=== PATIENT | female | born 1980 | race Caucasian/White ===

== ENCOUNTER 2024-02-08 14:15 | Emergency (ER) | payer MEDICAID, OTHER, SELFPAY ==
[2024-02-08] VITALS (7 sets, daily range): BP systolic 97–120; BP diastolic 66–75; PULSE 62–90; RESP 16–20; TEMP 36.5–36.6; O2SAT 97–100; BMI 26.9
--- NOTE | ~2024-02-08 | US_ITS ---
EXAMINATION: US VENOUS ULTRASOUND WITH DOPPLER LOWER EXTREMITY, BILATERAL CLINICAL INFORMATION: Calf pain COMPARISON: None available. TECHNIQUE: Ultrasound of the deep veins is performed from the hip to the calf with compression sonography and color and pulse Doppler assessment. Spectral analysis with color-flow imaging is performed. FINDINGS: RIGHT: There is normal venous compression and respiratory variation and augmented flow. The visualized common femoral vein, superficial femoral vein, profunda femoral vein, popliteal vein, and the trifurcation region shows no evidence of deep venous thrombosis. There is no significant popliteal fossa cyst. LEFT: There is normal venous compression and respiratory variation and augmented flow. The visualized common femoral vein, superficial femoral vein, profunda femoral vein, popliteal vein, and the trifurcation region shows no evidence of deep venous thrombosis. There is no significant popliteal fossa cyst. If the patient's symptoms persist, followup ultrasound in 5 days 7 days might be of value to exclude proximal propagation from a non-visualized calf vein. US/US venous duplex LE BI IMPRESSION: No DVT demonstrated in the bilateral lower extremity.
--- NOTE | 2024-02-08 14:19 | ED.GENADULT ---
HPI - General Adult General Chief complaint: General Medical Stated complaint: tired and diff walking Time Seen by Provider: 02/08/24 16:57 Source: patient and RN notes reviewed Mode of arrival: ambulatory Limitations: no limitations History of Present Illness ED Provider: Hali Prajapati PA-C HPI narrative: This is a 43-year-old female, with no known medical problems, who presents emergency department with complaints of fatigue, body aches, chills, for the last 2 weeks. Patient reports that over the last 2 weeks she has felt very tired and worn down. She denies any fevers, chills, congestion, sore throat, ear pain. She does endorse that she has had intermittent palpitations and chest pain, which occur at random. She states last episode of chest pain was 3 days ago. She states that she had palpitations yesterday. She denies history of similar symptoms in the past. She does not have a primary care physician at this time. She denies any recent travel, surgery, hospitalizations or surgeries MD complaint: Fatigue Onset (ago): week(s) Radiation: non-radiation Quality: aching Pain Consistency: constant Relieving factors: none Exacerbating factors: none Associated symptoms: denies other symptoms Treatments prior to arrival: none Related Data Allergies Allergy/AdvReac Type Severity Reaction Status Date / Time No Known Allergies Allergy Verified 02/08/24 14:22 Review of Systems Review of Systems: Yes all other systems are reviewed and are negative Constitutional: Constitutional: Reports as per [facility] Past Medical History Attestation statement: The following information was validated with the patient. Social History Social History Advance Directives: No Advance Directives Information Provided: No Physical Exam ED Vital Signs: Vital Signs - 24 hr 02/08/24 14:19 02/08/24 18:01 02/08/24 19:12 Temperature 97.8 F 97.7 F Pulse Rate 90 70 62 Respiratory Rate 16 20 Blood Pressure 97/66 115/73 108/67 Pulse Oximetry 97 100 Oxygen Delivery Method Room Air Room Air 02/08/24 19:14 02/08/24 19:16 02/08/24 22:15 Temperature 97.7 F Pulse Rate 65 70 72 Respiratory Rate 16 Blood Pressure 115/72 120/75 108/71 Pulse Oximetry 100 Oxygen Delivery Method Room Air 02/08/24 22:27 Temperature 97.7 F Pulse Rate 72 Respiratory Rate 16 Blood Pressure 108/71 Pulse Oximetry 100 Oxygen Delivery Method Room Air BMI result Body Mass Index 26.9 Const General: cooperative, comfortable and no acute distress Orientation/consciousness: patient oriented x3 Limitations: no limitations HENNY Head: Yes normal to inspection, Yes normocephalic and Yes atraumatic Ears: hearing grossly normal bilaterally General nose exam: Normal external nose present Face and sinus: Yes normal facial exam Mouth: Normal oral and palatal mucosa present, oropharynx normal and moist mucous membranes Throat: Yes posterior oropharynx normal Eyes General: appearance normal, both eyes and all related structures Eyelids: Yes eyelids normal Conjunctivae: conjunctivae normal Sclerae: sclerae normal Pupils: Equal, round and reactive pupils present EOM: EOMs intact bilaterally Neck Neck: Yes normal visual inspection, Yes full ROM and Yes no lymphadenopathy Lymphatic: no lymphadenopathy noted Chest Chest palpation & inspection: normal inspection of the chest Resp Effort & Inspection: normal respiratory effort and able to speak in complete sentences Auscultation: clear to auscultation bilaterally, no crackles, no rales, no rhonchi and no wheezes Cardio Rate: regular rate Rhythm: regular rhythm Heart sounds: S1 normal heart sound present and S2 normal heart sound present GI Inspection: Yes normal to inspection Skin General skin exam: no rashes or lesions noted Trauma: no lacerations or abrasions Wounds: no wounds Neuro General: patient oriented x3 and moves all extremities Cranial nerves: Yes Equal, round and reactive pupils present Extrem Other: Bilateral lower extremities with tenderness palpation along the calves, strong DP pulse, no obvious swelling General: Yes normal to inspection Right upper extremity: normal to inspection Left upper extremity: normal to inspection Right lower extremity: normal to inspection Left lower extremity: normal to inspection Course Course Course Narrative: This is an RME performed by Jame Chi CNP: Additional HPI, ROS, PE not included below will be deferred to primary provider. Patient is a 43-year-old female reporting fatigue, posterior headache, chills, myalgias, due to pain feels as though she is unable to walk up the stairs. Denies respiratory symptoms. Symptom onset was 2 weeks ago, progressively worsening Plan: Labs, Viral panel Reevaluation(s) Reevaluation #1: Patient's orthostatics are negative, workup today reassuring. I discussed with patient that no acute findings on her exam, however advised follow-up with the [facility]. She understands and agrees with plan. Given strict return precautions. Patient stable for discharge. Time: 19:28 Medications Administered Discontinued Medications Generic Name Dose Route Start Last Admin Trade Name Sapna PRN Reason Stop Dose Admin Acetaminophen 975 mg 02/08/24 18:34 02/08/24 18:48 Acetaminophen 325 Mg Tablet PO 02/08/24 18:35 975 mg ONCE ONE Administration Medical Decision Making Medical Decision Making [facility] Narrative: This is a 43-year-old female, with no known medical problems, who presents emergency department with complaints of fatigue, body aches for the last 2 weeks. On arrival, vital signs within normal limits. She is alert and oriented times 4. She states that her symptoms have been constant. She sleeps well at night, no history of similar symptoms in the past. She thought that this was a virus who states that her symptoms have not improved. She denies any fevers, chills, severe chest pain, shortness breath, abdominal pain, nausea, vomiting or diarrhea. She states no changes in her bowels. No recent weight loss, or profound fatigue. Differential diagnoses include anemia, viral syndrome, URI, hypothyroidism, tick-borne illness. She denies seeing any tics on her body or any recent rashes, she does not spend a significant amount of time outdoors. Plan, EKG, ultrasound bilateral lower extremities, labs Differential Diagnosis Differential Diagnoses: The differential diagnosis associated with the presentation includes See above Admission/Observation Consideration of admission/observation: Escalation of care including admission/observation considered Lab Data [facility] Lab Attestation statement: I reviewed the patient's lab results. No leukocytosis, H&H revealing a normocytic anemia 11.5/35.2, chemistry within normal limits. TSH 1.33, urine does not appear to be infected, negative mono, influenza, RSV, COVID 02/08/24 14:34 02/08/24 14:34 Labs: Lab Results 02/08/24 02/08/24 Range/Units 14:34 17:44 WBC 7.1 (4.8-10.8) X10*3/uL RBC 3.62 L (4.20-5.50) X10*6/uL Hgb 11.4 L (12.0-16.0) g/dl Hct 35.2 L (37.0-47.0) % MCV 97.2 (80.0-98.0) fL MCH 31.5 (27.0-33.0) pg MCHC 32.4 (31.0-35.0) g/dl RDW 12.4 (11.0-16.0) % Plt Count 235 (160-400) X10*3/uL MPV 10.8 (9.4-12.3) fL Immature Gran % (Auto) 0.1 (0.0-0.4) % Neut % (Auto) 63.7 (45-73) % Lymph % (Auto) 26.0 (20-40) % [place] % (Auto) 7.8 (2-11) % Eos % (Auto) 2.0 (0-4) % Baso % (Auto) 0.4 (0-2) % Lymph # (Auto) 1.8 (1.2-4.9) X10*3/uL [place] # (Auto) 0.6 (0.1-1.2) X10*3/uL Eos # (Auto) 0.1 (0.0-0.4) X10*3/uL Baso # (Auto) 0.0 (0.0-0.2) X10*3/uL Abs Immat Gran (auto) 0.01 (0.00-0.03) X10*3/uL Absolute Neuts (auto) 4.5 (2.0-8.3) x10*3/uL Absolute Nucleated RBC 0.000 (0.0-0.012) X10*3/uL Nucleated RBC % (auto) 0.0 (0.0-0.2) /100WBC Sodium 140 (135-145) mmol/L Potassium 4.6 (3.3-5.1) mmol/L Chloride 108 (96-108) mmol/L Carbon Dioxide 26 (22-29) mmol/L Anion Gap 11 L (12-20) BUN 18 H (9-16) mg/dL Creatinine 0.73 (0.5-1.4) mg/dL Estim Creat Clear Calc 90.6 Estimated GFR > 60 Random Glucose 97 (60-115) mg/dL Calcium 9.2 (8.4-10.2) mg/dL Total Bilirubin 0.7 (0.0-1.0) mg/dL AST 15 (5-31) U/L ALT 14 (0-31) U/L Alkaline Phosphatase 42 (39-117) U/L Total Protein 6.7 (6.5-8.0) g/dL Albumin 3.8 (3.5-5.0) g/dL TSH 1.33 (0.32-4.0) uIU/mL Urine Color Yellow Urine Appearance Clear Urine pH 7.0 (5.0-9.0) Ur Specific [place] 1.015 (1.005-1.025) Urine Protein Negative (Neg-Trace) mg/dL Urine Glucose (UA) Negative (Negative) mg/dL Urine Ketones Negative (Negative) mg/dL Urine Blood Negative (Negative) Urine Nitrite Negative (Negative) Ur Leukocyte Esterase Negative (Negative) Urine Test NEGATIVE (NEGATIVE) Monoscreen Negative (Negative) Influenza Type A (PCR) NEGATIVE (Negative) Influenza Type B (PCR) NEGATIVE (Negative) RSV RNA Qual (PCR) NEGATIVE (Negative) SARS-CoV-2 RNA (RT-PCR) NEGATIVE (Negative) Independent Interpretation I performed an independent interpretation of an: EKG Interpretation: EKG normal sinus rhythm at a ventricular rate of 61 beats per minute, FL interval 166, QT QTC 412/414. No ST elevation or depression Radiology Impression Discussion of test interpretation with radiology: I have reviewed the radiologist's reading. Radiologist Impression: US/US venous duplex LE BI IMPRESSION: No DVT demonstrated in the bilateral lower extremity. Dictated By: Seng Kumar MD Signed By: <Electronically signed by Seng Kumar MD in OV> Discharge Plan Discharge Clinical Impression: Fatigue Patient Disposition: Home, Self-Care Instructions: Fatigue (ED) Additional Instructions: You were seen in the emergency department after feeling fatigued. Your workup today was reassuring. Please rest, and drink plenty of fluids. Follow-up with the [facility], call on Sunday to make an appointment. We also tested you for tick-borne illnesses, we will call you if any of these are positive. If any new or worsening symptoms occur including but not limited to severe headache, dizziness, chest pain, shortness of breath, please return for re-evaluation. Referrals: [place],[facility] [Physician] - Interventions: ED Discharge Assessment Last Done: 02/08/24 22:27 Discharge Date/Time: 02/08/24 22:27 Print Language: Georgian
[2024-02-08 14:42] LABS: MANUAL DIFF FLAG NO
[2024-02-08 14:43] LABS: Basophils Percent Auto 0.4 % (0-2); Eosinophils Absolute Auto 0.1 X10*3/uL (0.0-0.4); Hematocrit 35.2 % (37.0-47.0); Hemoglobin 11.4 g/dl (12.0-16.0); Imm Gran Abs Auto 0.01 X10*3/uL (0.00-0.03); Imm Gran Pct Auto 0.1 % (0.0-0.4); Lymphocytes Absolute Auto 1.8 X10*3/uL (1.2-4.9); Mean Corpuscular HGB Conc 32.4 g/dl (31.0-35.0); Mean Corpuscular Hemoglobin 31.5 pg (27.0-33.0); Mean Corpuscular Volume 97.2 fL (80.0-98.0); Mean Platelet Volume 10.8 fL (9.4-12.3); Monocytes Absolute Auto 0.6 X10*3/uL (0.1-1.2); Monocytes Percent Auto 7.8 % (2-11); Neutrophils Absolute Auto 4.5 x10*3/uL (2.0-8.3); Neutrophils Percent Auto 63.7 % (45-73); Platelet Count 235 X10*3/uL (160-400); Red Blood Count 3.62 X10*6/uL (4.20-5.50); Red Cell Distribution Width 12.4 % (11.0-16.0); White Blood Count 7.1 X10*3/uL (4.8-10.8)
[2024-02-08 14:56] LABS: Alanine Aminotransferase 14 U/L (0-31); Albumin Level 3.8 g/dL (3.5-5.0); Alkaline Phosphatase 42 U/L (39-117); Anion Gap 11 (12-20); Aspartate Amino Transferase 15 U/L (5-31); Bilirubin Total 0.7 mg/dL (0.0-1.0); Blood Urea Nitrogen 18 mg/dL (9-16); Calcium 9.2 mg/dL (8.4-10.2); Carbon Dioxide 26 mmol/L (22-29); Chloride 108 mmol/L (96-108); Creatinine Clr Calc Pharmacy 90.6; Estimated Glomerular Filt Rate > 60; Glucose Random 97 mg/dL (60-115); Potassium 4.6 mmol/L (3.3-5.1); Sodium 140 mmol/L (135-145); Total Protein 6.7 g/dL (6.5-8.0)
[2024-02-08 15:20] LABS: Influenza A PCR NEGATIVE (Negative); Influenza B PCR NEGATIVE (Negative); Resp Syncy Virus RNA Qual PCR NEGATIVE (Negative); SARS COV2 PCR INHOUSE NEGATIVE (Negative)
[2024-02-08 17:54] LABS: Appearance Urine Clear; Color Urine Yellow; Glucose Urine UA Negative (Negative); Leukocyte Esterase Urine Negative (Negative); Nitrite Urine Negative (Negative); Specific Gravity - Urine 1.015 (1.005-1.025); Urine Blood Negative (Negative); Urine Ketones Negative (Negative); Urine Protein Negative (Neg-Trace)
[2024-02-08 17:57] LABS: UPreg QC Valid YES; Urine Pregnancy NEGATIVE (NEGATIVE)
[2024-02-08 18:03] LABS: Monotest Negative (Negative)
[2024-02-08] MEDS: Acetaminophen 325 MG TABLET 975 MG PO (18:48)
--- NOTE | 2024-02-08 19:29 | ECG_ITS ---
Test Reason : WEAKNESS Blood Pressure : / mmHG Vent. Rate : 061 BPM Atrial Rate : 061 BPM P-R Int : 166 ms QRS Dur : 086 ms QT Int : 412 ms P-R-T Axes : 038 020 024 degrees QTc Int : 414 ms Normal sinus rhythm Normal ECG No previous ECGs available Referred By: Hali Prajapati Electronically Signed By:Jamal Shaw
[2024-02-08 21:29] LABS: Thyroid Stimulating Hormone 1.33 uIU/mL (0.32-4.0)
[2024-02-11 15:07] LABS: A. Phagocytphilium DNA,RT-PCR NOT DETECTED (NOT DETECTED); Babesia Microti DNA, RT-PCR NOT DETECTED (NOT DETECTED); Borrelia Miyamotoi,DNA RT-PCR NOT DETECTED (NOT DETECTED); E.Chaffeensis DNA RT-PCR NOT DETECTED (NOT DETECTED); Lyme(Borrelia ssp)DNA RT-PCR NOT DETECTED (NOT DETECTED)
[2024-02-11 22:48] LABS: Lyme Abs Screen <0.90 index
== END 2024-02-08 22:27 | disposition home or self-care (01) ==
PROVIDERS: Nurse Practitioner Family; Physician Assistant Medical; Emergency Provider Emergency Medicine
DX: R53.83 Other fatigue (principal); M79.662 Pain in left lower leg; M79.661 Pain in right lower leg; R53.1 Weakness; Z03.818 Encounter for observation for suspected exposure to other biological agents ruled out; R51.9 Headache, unspecified
CPT/HCPCS: 0241U; 36415; 80053; 81003; 81025; 84443; 85025; 86308; 86617; 86618; 87468; 87469; 87478; 87484; 87798; 93005; 93970; 99284

== ENCOUNTER → 2024-02-08 19:29 | Outpatient (BNV) | payer SELFPAY | PROVIDERS: Emergency Provider Emergency Medicine; Visit Provider Internal Medicine Cardiovascular Disease | DX: R53.1 Weakness (principal) | CPT/HCPCS: 93010 ==